=== PATIENT | female | born 1940 | race American Indian/Alaskan Native ===

== ENCOUNTER 2016-12-14 15:41 | Emergency (ER) | payer MEDICARE ==
[2016-12-14 22:07] LABS: Hematocrit 33.4 % (30.3-42.9); Hemoglobin 11.7 gm/dl (10.1-14.3); Mean Corpuscular HGB Conc 35 % (30-34); Mean Corpuscular Hemoglobin 29 pg (28-32); Mean Corpuscular Volume 84 fl (79-97); Platelet Count 196 K/mm3 (140-440); Red Blood Count 3.99 M/mm3 (3.65-5.03); Red Cell Distribution Width 16.2 % (13.2-15.2); White Blood Count 9.3 K/mm3 (4.5-11.0)
--- NOTE | 2016-12-14 22:24 | XRay Report ---
FINAL REPORT PROCEDURE: XR HIP 2-3V RT TECHNIQUE: LEFT hip radiographs, 2 views each, including AP view of the pelvis. HISTORY: hip pain/arthritis COMPARISON: No prior studies are available for comparison. FINDINGS: Fracture (s) and/or Dislocation(s): None . Joint space(s): A total hip prosthesis is noted on the left side demonstrating satisfactory alignment. The femoral component is extending into the distal diaphysis with intra medullary bone cement throughout femoral diaphysis. There is absence of the proximal most portion of the femoral diaphysis which is replaced by the prosthetic hardware. There is narrowing of the right hip joint space with osteophyte formation Soft tissues: Irregular areas of soft tissue ossification is noted in the left hip region consistent with myositis ossificans. Foreign bodies: None. IMPRESSION: No acute fracture is noted. A left hip and femoral prosthetic hardware is noted with satisfactory alignment of the hip joint components. Osteoarthritis right hip joint
[2016-12-14 22:25] LABS: Anion Gap 17 mmol/L; BUN/Creatinine Ratio 20; Blood Urea Nitrogen 18 mg/dL (7-17); Calcium 9.2 mg/dL (8.4-10.2); Carbon Dioxide 28 mmol/L (22-30); Chloride 101.8 mmol/L (98-107); Glucose 91 mg/dL (65-100); Lipase 23 units/L (13-60); Sodium 143 mmol/L (137-145)
--- NOTE | 2016-12-14 22:42 | XRay Report ---
FINAL REPORT PROCEDURE: XR SHOULDER 2+V LT TECHNIQUE: Left shoulder, three views HISTORY: shoulder pain/hx of arthritis COMPARISON: No prior studies are available for comparison. FINDINGS: No fracture or dislocation is seen. There are arthritic changes of the glenohumeral and acromioclavicular joint. IMPRESSION: Arthritis. No acute abnormality is seen
--- NOTE | 2016-12-14 22:46 | XRay Report ---
FINAL REPORT PROCEDURE: XR CHEST ROUTINE 2V TECHNIQUE: PA and lateral chest radiographs were obtained. CPT 82438 HISTORY: rib pain COMPARISON: No prior studies are available for comparison. FINDINGS: Heart: Normal. Mediastinum/Vessels: Prominent central vessels. Lungs/Pleural space: There is no infiltrate, effusion, or pneumothorax seen. Bony thorax: There is cortical irregularity of right-sided 3rd and 4th ribs, which may be chronic. There is compression deformity of several mid and lower thoracic vertebra, of uncertain chronicity. Other: IMPRESSION: Cortical irregularity of the right 3rd and 4th ribs is of uncertain chronicity and may be related to old trauma. Rib series may be helpful to evaluate further. Thoracic spine compression fractures are of uncertain chronicity.
[2016-12-14 23:15] VITALS: BP 137/68
[2016-12-14] MEDS ORDERED: FLEXERIL PO ONE (23:36)
[2016-12-14] MEDS ORDERED: NORCO 5/325 PO ONE (23:36)
[2016-12-14] MEDS ORDERED: MOTRIN PO ONE (23:37)
--- NOTE | 2016-12-15 03:47 | Emergency Department Report ---
Upper Extremity - [facility] Chief Complaint: Extremity Injury, Upper Stated Complaint: LEFT AND RIGHT ARM PAIN Time Seen by Provider: 12/14/16 19:50 ED Review of Systems ROS: Stated complaint: LEFT AND RIGHT ARM PAIN Other details as noted in HPI ED Past Medical Hx - Past Medical History Previous Medical History?: Yes Hx Hypertension: Yes Hx Arthritis: Yes (OSTEOARTHRITIS) Additional medical history: OSTEOPOROSIS. HYPOTHYROID - Surgical History Past Surgical History?: Yes Additional Surgical History: LEFT HIP REPLACEMENT. RIGHT KNEE REPLACEMENT. HYSTERECTOMY - Social History Smoking Status: Former Smoker Substance Use Type: Non Opiate Pain, Prescribed - Medications Home Medications: Home Medications Medication Instructions Recorded Confirmed Last Taken Type traMADol [Ultram 50 MG tab] 50 mg PO Q6HR PRN #20 tablet 07/06/15 Unknown Rx Upper Extremity Exam - Exam General: Vital signs noted. No distress. Alert and acting appropriately. ED Course Vital Signs 12/14/16 12/14/16 17:43 22:46 Temperature 97.8 F 98.6 F Pulse Rate 69 77 Respiratory 18 16 Rate Blood Pressure 137/77 Blood Pressure 137/68 [Left] O2 Sat by Pulse 97 100 Oximetry ED Medical Decision Making - Lab Data Result diagrams: 12/14/16 21:50 12/14/16 21:50 Critical care attestation.: If time is entered above; I have spent that time in minutes in the direct care of this critically ill patient, excluding procedure time. ED Disposition Condition: Stable Referrals: PRIMARY CARE, [Primary Care Provider] - 3-5 Days
== END 2016-12-15 04:04 | disposition home or self-care (01) ==
LOC: ED 15:41
DX: M79.601 Pain in right arm (principal); M79.602 Pain in left arm; I10 Essential (primary) hypertension
CPT/HCPCS: 36415; 71020; 80048; 83690; 84484; 85027; 93005; 93010

== ENCOUNTER 2017-05-25 11:12 | Outpatient (CLI) | payer MEDICARE ==
--- NOTE | 2017-05-26 03:44 | XRay Report ---
FINAL REPORT EXAM: XR RT HIP CLINICAL INDICATIONS: RT HIP PAIN FINDINGS: AP view of the pelvis was acquired as well as AP and lateral views of the right hip. No acute fracture is seen in the pelvis or hips. There is a left hip prosthesis with a long femoral shaft. This appears likely to represent a revision prosthesis. There is some cortical remodeling around the distal aspect of the femoral shaft of the prosthesis. There is advanced right hip osteoarthritis with loss of joint space and osteophyte formation. No fracture is seen. IMPRESSION: ADVANCED RIGHT HIP OSTEOARTHRITIS. NO FRACTURE IS SEEN
== END 2017-05-25 11:13 | disposition home or self-care (01) ==
LOC: SPVIMAG 11:12
PROVIDERS: ATTEND Internal Medicine Rheumatology
DX: M16.11 Unilateral primary osteoarthritis, right hip (principal); Z96.642 Presence of left artificial hip joint

== ENCOUNTER 2018-08-27 13:34 | Outpatient (CLI) | payer MEDICARE ==
--- NOTE | 2018-08-27 15:38 | XRay Report ---
Metastatic bone survey. History: MULTIPLE MYELOMA NOT HAVING ACHIEVED REMISSION Findings: Skull: Numerous suspicious lytic lesions. C-spine: Multiple suspicious lytic lesions of vertebral bodies and posterior elements. Severe degener ative facet joint disease. T-spine: Numerous tiny suspicious lytic lesions of vertebral bodies and posterior elements and a scle rotic lesion of T12 vertebral body. Chronic anterior wedge compression fractures involving T9, T10 an d T11. No acute fracture. L-spine: Numerous tiny suspicious lytic lesions. Mild chronic compression fractures of L1 and L2. Ali gnment is anatomic. Severe degenerative facet joint disease. Chest: Old healed fractures of left ribs. No suspicious rib lesions. Pelvis: Numerous tiny suspicious lytic lesions of the pelvic bones. Right humerus: Several suspicious lytic lesions. Left humerus: Several suspicious lytic lesions.> Right femur: Several suspicious lytic lesions. Left femur: Several suspicious lytic lesions. Status post left total hip replacement. Impression: Extensive suspicious lytic lesions as described above. Signer Name: Ray Hudson MD Signed: 08/27/2018 3:33 PM Workstation Name: [id number]
== END 2018-08-27 13:35 | disposition home or self-care (01) ==
LOC: XRAY 13:34
PROVIDERS: ATTEND Internal Medicine Hematology & Oncology
DX: M47.812 Spondylosis without myelopathy or radiculopathy, cervical region (principal); M48.54XA Collapsed vertebra, not elsewhere classified, thoracic region, initial encounter for fracture; C90.00 Multiple myeloma not having achieved remission; I10 Essential (primary) hypertension; E78.00 Pure hypercholesterolemia, unspecified; E03.9 Hypothyroidism, unspecified; Z87.891 Personal history of nicotine dependence
CPT/HCPCS: 77074

== ENCOUNTER 2019-02-05 08:47 | Day surgery (SDC) | payer MEDICARE ==
[2019-02-05] MEDS ORDERED: SODIUM CHLORIDE 0.9% 1000 ML 1,000 ML IV SCH (09:30)
--- NOTE | 2019-02-05 09:44 | Anesthesia Day of Surgery ---
Anesthesia Day of Surgery - Day of Surgery Patient Examined: Yes Patient H&P Reviewed: Yes Patient is NPO: Yes
--- NOTE | 2019-02-05 09:44 | Anesthesia Consultation ---
Anesthesia Consult and Med Hx Date of service: 02/05/19 - Airway Anesthetic Teeth Evaluation: Good ROM Head & Neck: Adequate Mental/Hyoid Distance: Adequate Mallampati Class: Class II Intubation Access Assessment: Probably Good - Pre-Operative Health Status ASA Pre-Surgery Classification: ASA3 Proposed Anesthetic Plan: MAC - Pulmonary Hx Smoking: Yes (IRREGULAR SMOKER , STOPPED ) Hx Asthma: No Hx Respiratory Symptoms: Yes (chronic bronchitis; use breo inhaler) Hx Sleep Apnea: No (MALISSA PRE SCREEN LOW RISK) - Cardiovascular System Hx Hypertension: Yes (X 10 YRS) Hx Heart Attack/AMI: No Hx Percutaneous Transluminal Coronary Angioplasty (PTCA): No - Central Nervous System Hx Seizures: No CVA: No Hx Back Pain: Yes - Gastrointestinal Hx Gastroesophageal Reflux Disease: No - Endocrine Hx Renal Disease: No Hx Liver Disease: No Hx Insulin Dependent Diabetes: No Hx Hypothyroidism: Yes - Hematic Hx Anemia: Yes - Other Systems Hx Cancer: Yes (MULTIPLE MYELOMA WITH CHEMO & RADIATION 1979) Hx Obesity: No
[2019-02-05] MEDS ORDERED: PROPOFOL 200 MG/20 ML VIAL IV ONE ×2 (10:30)
--- NOTE | 2019-02-05 11:05 | Short Stay Summary ---
Short Stay Documentation Date of service: 02/05/19 Narrative H&P: The patient presents for EGD and colonoscopy to evaluate iron deficiency anemia due to chronic GI blood loss. - History Past Medical History: cancer (Multiple myeloma, not in remission.), COPD, hypertension, other (osteoporosis) Past Surgical History: Other (spinal surgery and joint replacement surgery.) Social history: no significant social history - Allergies and Medications Current Medications: Allergies hydrocortisone Adverse Reaction (Verified 01/30/18 14:21) Itching milk Adverse Reaction (Verified 01/30/18 14:21) Diarrhea Home Medications Medication Instructions Recorded Confirmed Last Taken Type Meloxicam 7.5 mg PO QAM #5 tablet 12/15/16 03/20/18 01/27/18 09:00 Rx AtorvaSTATin [Lipitor] 40 mg PO QHS 01/24/18 03/20/18 02/03/19 History Fluticasone/Vilanterol [Breo 1 puff IH DAILY 01/24/18 03/20/18 01/30/18 07:00 History Ellipta 200-25 Mcg INH] Gabapentin [Neurontin] 600 mg PO QHS 01/24/18 03/20/18 01/22/19 History Levothyroxine [Synthroid] 75 mcg PO QAM 01/24/18 03/20/18 02/04/19 History dilTIAZem CD [Cardizem Cd] 300 mg PO QDAY 01/24/18 03/20/18 02/05/19 07:00 History HYDROcodone/ACETAMINOPHEN [Damar 1 each PO Q4-6H PRN #20 tablet 01/30/18 03/20/18 Unknown Rx 7.5-325 Tablet] Active Medications Sodium Chloride (Nacl 0.9% 1000 Ml) 1,000 mls @ 50 mls/hr IV DIRECT ESA - Physical exam General appearance: no acute distress, well-nourished Integumentary: no rash, no growths, no abnormal pigmentation HEENT: Atraumatic, PERRLA, EOMI, Mucous membr. moist/pink Lungs: Clear to auscultation Breasts: deferred Heart: Regular rate, Normal S1, Normal S2, No murmurs Gastrointestinal: normoactive bowel sounds, no tenderness, no distended, no masses, no guarding, no organomegaly Female Genitourinary: deferred Rectal Exam: normal rectal tone, other (Large external hemorrhoids) Extremities: no ischemia Neurological: Normal gait, Normal speech, Strength at 5/5 X4 ext, Normal tone, Sensation intact, Cranial nerves 3-12 NL - Brief post op/procedure progress note Date of procedure: 02/05/19 Findings: see dictated reports Estimated blood loss: none Pathology: list (BIOPSY SPECIMENS: 1. polyp in 3rd portion of duodenum, 2. polyp in gastric cardia 3. large polyp in ascending colon 4. hepatic flexure francesco yp) Specimen disposition: to lab Condition: stable - Disposition Condition at discharge: Good Disposition: DC-01 TO HOME OR SELFCARE - Discharge Diagnoses (1) Iron deficiency anemia due to chronic blood loss Status: Acute (2) Multiple myeloma Status: Acute Short Stay Discharge Plan Activity: other (no driving for 24 hours, office appt for discussion in 2-3 weeks) Weight Bearing Status: Full Weight Bearing Diet: regular Follow up with: RENÉ DE LUNA MD [Primary Care Provider] - 7 Days
--- NOTE | 2019-02-05 11:12 | Operative Report ---
Operative Report Operative Report: Date of procedure: 02/05/2019 Procedure: Esophagogastroduodenoscopy with biopsies of the large polyp in the t hird portion of the duodenum and biopsies of a polyp in the gastric cardia. Mucosal tattoo placed distal to the duodenal polyp Preprocedure diagnosis: Iron deficiency anemia secondary to chronic blood loss Post procedure diagnosis: 4 cm villous appearing polyp in the third portion of the duodenum Endoscopist: Dr. Stauffer Anesthesia: Monitored anesthesia care per anesthesia department Medications: Propofol per anesthesia Estimated blood loss: 0 After careful discussion of the nature and purpose of the procedure as well as details the technique risks benefits and alternatives consent was obtained. The patient was placed in the left lateral decubitus position and medicated per anesthesia. The tip of the Olympus video scope was passed per orum under direct vision into the esophagus and advanced into the stomach and descending duodenum. The descending duodenum the duodenal bulb and pylorus were symmetrical and normal. There was advanced to the third portion of the duodenum where a 4 cm villous appearing polyp was present. The polyp appeared to be approximately 10 cm distal to the ampulla of Vater. Multiple biopsies were taken and a tattoo was placed just distal to the large polyp. The scope was withdrawn into the stomach and the stomach then gently insufflated with air. The antrum was normal. The stomach was further insufflated and the scope was then retroflexed and partially withdrawn. The cardia revealed a 1 cm fundic gland appearing polyp. Biopsies were taken. Otherwise the fundus, and body of the stomach were within normal limits and easily distensible.The scope was then withdrawn in the forward position. A small sliding hiatus hernia was present. The esophagogastric junction was at 35cm. The esophageal body was normal throughout. The procedure was was well tolerated and the patient was observed in recovery. Impressions: [1. large 4cm polyp in the third portion of the duodenum with a villous appearance. Biopsies pending 2. In the gastric cardia, likely a fundic type polyp by appearance. Plan: Await pathology report. Follow up to the office in 2-3 weeks for discussion and further management. The duodenal polyp may need consideration of surgery, if not amenable to endoscopic mucosal resection. Electronically signed: Gurjit Stauffer MD
--- NOTE | 2019-02-05 11:17 | Operative Report ---
Operative Report Operative Report: Date of procedure: 02/05/2019 Preprocedure diagnosis: Iron deficiency anemia secondary to chronic blood loss. Post procedure diagnosis: #1 large villous appearing, lateral spreading polyp in the ascending colon. #2 hepatic flexure polyp #3 large external hemorrhoids Procedure: Colonoscopy to the cecum with biopsies of both polyps but not polypectomy. Endoscopist: Dr. Stauffer Anesthesia: Monitored anesthesia care per anesthesia department Estimated blood loss: 0 Medications: Monitored anesthesia care. See separate report by anesthesia for details. After careful discussion of the nature and purpose of the procedure as well as details of the technique risks benefits and alternatives the patient gave consent. Please see recent history and physical from the office. The patient was placed in the left lateral decubitus position and medicated per anesthesia. A rectal exam was performed sphincter tone was normal there were no masses palpable. The patient had very large and rubbery external hemorrhoids. The Olympus colonoscope was passed transanally and advanced under continuous direct vision without difficulty to the cecum. The colon was well prepared. The cecum was normal. The ascending colon revealed a 4 cm lateral spreading type polyp which was saddled over a fold in the mid ascending colon approximately 2 folds distal to the ileocecal valve. Biopsies were taken as the lesion appeared to be higher risk for complete endoscopic removal. There was a 1 cm flat polyp in the hepatic flexure which was likewise biopsied. Polyp was not removed as the more proximal polyp was likely to be considered for surgery. The transverse colon, descending colon, and sigmoid colon were normal. The rectum was normal on forward and retroflexed views. The procedure was well- tolerated overall and the patient was observed in recovery. Conclusions: #1 large ascending colon polyp, not felt to be endoscopically removable, although may be potentially resectable by endoscopic mucosal resection technique. 2 hepatic flexure polyp, flat. #3 large external hemorrhoids Plan: Await biopsy pathology. Office follow-up in 2-3 weeks for discussion in light of the patient's other co morbid illnesses. Signed electronically: Gurjit Stauffer M.D.
[2019-02-05] MEDS ORDERED: LIDOCAINE MPF (2%) 20 MG/1 ML VIAL 5 ML ONE (11:30)
[2019-02-05 11:39] VITALS: BP 133/69
--- NOTE | 2019-02-05 12:52 | Post Anesthesia Evaluation ---
- Post Anesthesia Evaluation Patient Participated: Yes Airway Patent: Yes Stable Respiratory Function: Yes Nausea/Vomiting: No Temp > 96.8F: Yes Pain Manageable: Yes Adequeate Hydration: Yes Anesthesia Complications: No Block Receding Appropriately: Not Applicable Patient on Ventilator: No
== END 2019-02-05 08:48 | disposition home or self-care (01) ==
LOC: GIO 08:47
PROVIDERS: ATTEND Internal Medicine Gastroenterology
DX: D50.0 Iron deficiency anemia secondary to blood loss (chronic) (principal); D12.3 Benign neoplasm of transverse colon; D12.2 Benign neoplasm of ascending colon; D13.2 Benign neoplasm of duodenum; K31.89 Other diseases of stomach and duodenum; J44.9 Chronic obstructive pulmonary disease, unspecified; I10 Essential (primary) hypertension; M81.0 Age-related osteoporosis without current pathological fracture; K64.4 Residual hemorrhoidal skin tags; K44.9 Diaphragmatic hernia without obstruction or gangrene; K21.9 Gastro-esophageal reflux disease without esophagitis; C90.00 Multiple myeloma not having achieved remission; E78.00 Pure hypercholesterolemia, unspecified; M06.9 Rheumatoid arthritis, unspecified; E03.9 Hypothyroidism, unspecified; Z98.890 Other specified postprocedural states; Z91.011 Allergy to milk products; Z98.49 Cataract extraction status, unspecified eye; Z96.642 Presence of left artificial hip joint; Z96.651 Presence of right artificial knee joint; Z88.8 Allergy status to other drugs, medicaments and biological substances
CPT/HCPCS: 43236; 43239; 45380; 88305; 88342; J2704; J7030

== ENCOUNTER 2019-12-02 09:50 | Outpatient (CLI) | payer MEDICARE ==
--- NOTE | 2019-12-02 11:37 | XRay Report ---
Skeletal survey-16 views INDICATION: HIP PAIN,INITIAL STAGING,COMPARE TO LAST. COMPARISON: Skeletal survey from 08/27/2018 IMPRESSION: Multiple bony lesions are again seen throughout the entire skeleton, notable for expansi le rib lesions and as a destructive right iliac wing lesion which has grown in size since the previou s exam. Multilevel compression deformities are again present throughout the thoracic spine with mild resultant kyphosis. No acute-appearing fracture identified. There is evidence of hardware loosening involving the left custom hip arthroplasty and bridging heterotopic ossification. Signer Name: Solo Maloney MD Signed: 12/02/2019 11:32 AM Workstation Name: [id number]
== END 2019-12-02 09:51 | disposition home or self-care (01) ==
LOC: XRAY 09:50
PROVIDERS: ATTEND Nurse Practitioner
DX: C90.00 Multiple myeloma not having achieved remission (principal); D50.0 Iron deficiency anemia secondary to blood loss (chronic); D64.9 Anemia, unspecified; R68.89 Other general symptoms and signs; K92.2 Gastrointestinal hemorrhage, unspecified
CPT/HCPCS: 77074

== ENCOUNTER 2020-11-06 09:22 | Outpatient (CLI) | payer MEDICARE ==
--- NOTE | 2020-11-06 11:16 | XRay Report ---
SKELETAL SURVEY INDICATION / CLINICAL INFORMATION: MULTIPLE MYELOMA NOT HAVING ACHIEVED REMISSION C90.00. COMPARISON: 12/02/2019 FINDINGS: SKULL: No significant change. C-SPINE: No significant change. Severe degenerative facet disease. HUMERI: No significant change CHEST: Redemonstrated not significantly changed rib lesions. T-SPINE: No significant change. Redemonstrated T11 compression fracture. Scattered spondylosis. L-SPINE: No significant change. PELVIS: Redemonstrated large lytic lesion involving the right iliac wing. FEMORA: Redemonstrated left total hip arthroplasty with bridging osteophyte. The hardware appears unc hanged compared to previous radiograph. ADDITIONAL FINDINGS: None. IMPRESSION: 1. No significant change in numerous lucencies throughout the skeleton. Signer Name: William Ovalle DO Signed: 11/06/2020 11:11 AM Workstation Name: [id number]
== END 2020-11-06 09:23 | disposition home or self-care (01) ==
LOC: XRAY 09:22
PROVIDERS: ATTEND Internal Medicine Hematology & Oncology
DX: C90.00 Multiple myeloma not having achieved remission (principal); Z96.642 Presence of left artificial hip joint
CPT/HCPCS: 77074

== ENCOUNTER 2021-01-25 12:11 | Outpatient (CLI) | payer MEDICARE ==
--- NOTE | 2021-01-25 15:41 | XRay Report ---
Left pelvis-3 views INDICATION: PAIN IN UNSPECIFIED HIP. COMPARISON: Metastatic survey from 11/06/2020 IMPRESSION: Multiple destructive bone lesions are again seen most notably involving the right iliac wing posteriorly with prominent soft tissue component. The custom left hip arthroplasty shows essenti ally unchanged alignment with bony remodeling and considerable medial migration/bony remodeling of th e distal femoral stem. Bridging heterotopic ossification over the left hip with advanced right hip DJ Kenny Signer Name: Solo Maloney MD Signed: 01/25/2021 3:37 PM Workstation Name: [id number]
== END 2021-01-25 12:12 | disposition home or self-care (01) ==
LOC: XRAY 12:11
PROVIDERS: ATTEND Orthopaedic Surgery
DX: M16.12 Unilateral primary osteoarthritis, left hip (principal)
CPT/HCPCS: 72170

== ENCOUNTER 2021-06-09 09:35 | Outpatient (CLI) | payer MEDICARE ==
--- NOTE | 2021-06-09 13:52 | XRay Report ---
METASTATIC BONE SURVEY HISTORY: Anemia. COMPARISON: 11/06/2020 FINDINGS: Skull: Multiple small lytic lesions are again none. Cervical spine: Osteopenia and multifocal DJD again noted. Chest/thoracic spine: Underlying osteopenia and multiple chronic compression again noted inferiorly. No infiltrate. Humeri: Unchanged. Lumbar spine: Underlying osteopenia and mild multifactorial compressions remain. Pelvis: Large lytic lesion remains right iliac wing. Underlying osteopenia and degenerative change. P revious placement of left hip prosthesis. Femurs: Postsurgical change remains left femur. Small lytic foci at the right femur remain. IMPRESSION: Underlying osteopenia, lytic change and multifocal vertebral compression remains without significant interval change. Signer Name: Sam Savage MD Signed: 06/09/2021 1:48 PM Workstation Name: [id number]
== END 2021-06-09 09:36 | disposition home or self-care (01) ==
LOC: XRAY 09:35
PROVIDERS: ATTEND Internal Medicine Hematology & Oncology
DX: M85.89 Other specified disorders of bone density and structure, multiple sites (principal); D64.9 Anemia, unspecified
CPT/HCPCS: 77074